=== PATIENT | female | born 1980 | race Two or more races ===

== ENCOUNTER 2024-10-12 05:05 | Inpatient (IN) | payer MEDICAID ==
[2024-10-12] MEDS ORDERED: ceFAZolin 2 GM in Water For Injection, Sterile 20 ML IVPUSH ONE (05:11)
[2024-10-12] MEDS ORDERED: Sodium Chloride 0.9% 10 ML Syringe FLUSH PRN (05:11)
[2024-10-12] MEDS ORDERED: Sodium Chloride 0.9% 2.5 ML Syringe FLUSH PRN (05:11)
[2024-10-12] MEDS ORDERED: Citric Acid/Sodium Citrate Solution 30 ML Cup PO ONE (05:11)
[2024-10-12] MEDS ORDERED: Oxytocin/0.9 % Sodium Chloride 30 UNIT/500 ML BAG IV SCH (05:15)
[2024-10-12] MEDS: Lactated Ringers 1,000 ML IV SCH (05:35)
[2024-10-12 06:10] LABS: MEAN PLATELET VOLUME 12.3 fL (9.4-12.3); NRBC ABSOLUTE 0.00 K/uL (0.00-0.02); NRBC PERCENT 0.0 /100WBC (0.0-0.2); PLATELET COUNT,PLT 217 K/uL (150-400); RED BLOOD CELL COUNT 4.10 M/uL (4.10-5.30); WHITE BLOOD CELL COUNT,WBC 7.30 K/uL (3.9-11.3)
[2024-10-12] MEDS ORDERED: Phenylephrine 1% 10 MG/ML SDV ONE (07:04)
[2024-10-12] MEDS ORDERED: Ondansetron 4 MG/2 ML SDV ONE (07:04)
[2024-10-12] MEDS ORDERED: Dexamethasone 4 MG/ML 5 ML MDV ONE (07:04)
[2024-10-12] MEDS ORDERED: Ropivacaine 0.5% 5 MG/ML 30 ML SDV ONE (07:04)
[2024-10-12] MEDS ORDERED: fentaNYL 100 MCG/2 ML SDV ONE (07:04)
[2024-10-12] MEDS ORDERED: ePHEDrine 50 MG/ML SDV ONE (07:04)
[2024-10-12] MEDS ORDERED: Morphine PF 10 MG/10 ML SDV ONE (07:04)
[2024-10-12] MEDS ORDERED: Oxytocin 10 Units/1 ML SDV ONE ×2 (07:04→08:05)
[2024-10-12] MEDS ORDERED: dexmedeTOMIDine HCl 200 MCG/2 ML SDV ONE (07:04)
[2024-10-12] MEDS ORDERED: Naloxone 0.4 MG/ML SDV IVPUSH PRN ×2 (07:27→09:09)
[2024-10-12] MEDS ORDERED: Albuterol 0.083% 2.5 MG/3 ML Neb Soln NEB PRN (07:27)
[2024-10-12] MEDS ORDERED: fentaNYL 50 MCG/ML SDV IVPUSH PRN (07:27)
[2024-10-12] MEDS ORDERED: Nalbuphine 10 MG/1 ML Vial IVPUSH PRN (07:27)
[2024-10-12] MEDS ORDERED: Acetaminophen/oxyCODONE 325-5 MG Tab PO PRN (07:27)
[2024-10-12] MEDS ORDERED: Ondansetron 4 MG/2 ML SDV IVPUSH PRN ×3 (07:27→09:09)
[2024-10-12] MEDS ORDERED: diphenhydrAMINE 50 MG/ML SDV IVPUSH PRN ×2 (07:27→09:09)
[2024-10-12] MEDS ORDERED: fentaNYL 100 MCG/2 ML SDV IVPUSH PRN (07:27)
[2024-10-12] MEDS ORDERED: Calcium Chloride 10% 1 GM/10 ML Syringe ONE (08:06)
[2024-10-12] MEDS ORDERED: Lanolin 100% Cream 7 GM Tube TOP PRN (09:09)
[2024-10-12] MEDS ORDERED: Oxytocin 10 Units/1 ML SDV IM PRN (09:09)
[2024-10-12] MEDS ORDERED: 50% Dextrose in Water 50 ML Syringe IVPUSH PRN (09:14)
[2024-10-12] MEDS ORDERED: Lactated Ringers 1,000 ML IV SCH (09:15)
[2024-10-12 09:33] LABS: PH,UMBILICAL ARTERIAL 7.27 (7.18-7.38); PH,UMBILICAL VENOUS 7.38 (7.25-7.45)
[2024-10-12] MEDS: Ketorolac 30 MG/ML SDV IVPUSH SCH (09:48)
[2024-10-12] MEDS: Insulin Glargine,Human Rec. Analog 100 Units/ML 3 ML Pen SUBCUT SCH (21:58)
== END 2024-10-14 12:20 | disposition home or self-care (01) | DRG 786 ==
LOC: MW.OB 05:05 → OBSVTOIN 07:57 → MW.OB 18:42
PROVIDERS: ADMIT Obstetrics & Gynecology; ATTEND Obstetrics & Gynecology
PROC: 10D00Z1 Extraction of Products of Conception, Low, Open Approach (ICD-10-PCS; principal; 2024-10-12 08:00)
DX: O34.211 Maternal care for low transverse scar from previous cesarean delivery (principal); O24.12 Pre-existing type 2 diabetes mellitus, in childbirth; O10.92 Unspecified pre-existing hypertension complicating childbirth; Z3A.39 39 weeks gestation of pregnancy; Z37.0 Single live birth; Z79.899 Other long term (current) drug therapy; O99.214 Obesity complicating childbirth
CPT/HCPCS: 01961; 36415; 59025; 64999; 82803; 82947; 85014; 85018; 85027; 86592; 86850; 86900; 86901; A9270-GY; J0690; J1100; J1815-GY; J1885; J2274; J2371; J2405; J2590; J2795; J3010; J3490; J7120